=== PATIENT | female | born 1940 | race Caucasian/White ===

== ENCOUNTER 2018-06-20 13:43 | Inpatient (IN) | payer MEDICARE, OTHER ==
[~2018-06-20] VITALS: Ht 152.4 cm; Wt 53.7 kg
[~2018-06-20 13:43] MED LIST: ASCO10004 PO; CALCIUM/MAGNESIUM PO; CYAN500L2 PO; LEVO112T2 PO; LISI-167 PO; MINERALS PO; MULT-309 PO; NIAC500T85 PO; NIACIN PO; OXYC1TAB7 PO; PARO30TA3 PO; VITAMIN PO; [UNRECOGNIZED DRUG - OTHER] PO
[2018-06-20 14:20] LABS: BASOPHILS # (AUTO) 0.04 x10^3/uL (0-0.1); BASOPHILS % (AUTO) 1 % (0-1); EOSINOPHILS # (AUTO) 0.12 x10^3/uL (0-0.4); EOSINOPHILS % (AUTO) 2 % (1-7); LYMPHOCYTES # (AUTO) 2.22 x10^3/uL (1-3.4); LYMPHOCYTES % (AUTO) 29 % (22-44); MD NO; MEAN CORPUSCULAR HEMOGLOBIN 33.3 pg (27.0-34.8); MEAN CORPUSCULAR HGB CONC 34.1 g/dL (32.4-35.8); MEAN CORPUSCULAR VOLUME 97.6 fL (80-100); MONOCYTES # (AUTO) 0.49 x10^3/uL (0.2-0.8); MONOCYTES % (AUTO) 6 % (2-9); NEUTROPHILS # (AUTO) 4.91 x10^3/uL (1.8-6.8); NEUTROPHILS % (AUTO) 63 % (42-75); PLATELET COUNT 276 x10^3/uL (130-400); RED BLOOD COUNT 3.38 x10^6/uL (3.82-5.3); RED CELL DISTRIBUTION WIDTH 14.9 % (9.6-15.2)
[2018-06-20 14:32] LABS: INTERNATIONAL NORMALIZED RATIO 0.94 (0.93-1.1); PROTHROMBIN TIME 9.8 Seconds (9.6-11.5)
[2018-06-20] MEDS ORDERED: ASPIRIN 325 MG TABLET PO ONE (14:34)
[2018-06-20] MEDS ORDERED: ASPIRIN 325 MG TABLET ONE (14:51)
[2018-06-20] MEDS ORDERED: ONDANSETRON ODT 4 MG PO PRN (16:00)
[2018-06-20 16:02] LABS: FREE T4 (FREE THYROXINE) 1.28 ng/dL (0.76-1.46); THYROID STIMULATING HORMONE 0.578 mIU/L (0.358-3.740)
[2018-06-20 16:18] VITALS: BP 184/89
[2018-06-20 16:19] VITALS: BP 191/77
[2018-06-20 16:20] VITALS: BP 168/82
[2018-06-20] MEDS ORDERED: DIPHENHYDRAMINE 50 MG CAPSULE PO ONE (16:30)
[2018-06-20] MEDS ORDERED: DIPHENHYDRAMINE 50 MG CAPSULE ONE (16:31)
[2018-06-20] MEDS: HEPARIN 5,000 UNITS/ML, 1ML SQ SCH (16:35)
[2018-06-20] MEDS ORDERED: GADOBUTROL 7.5 MMOL/7.5 ML PFS ONE (17:28)
[2018-06-20 18:26] VITALS: BP 158/70
[2018-06-20 19:47] VITALS: BP_SYST 158; BP_SYST 161; BP_DIAS 60; BP_DIAS 63
[2018-06-20] MEDS ORDERED: PAROXETINE 10 MG TABLET PO SCH (21:00)
[2018-06-20] MEDS ORDERED: LISINOPRIL 10 MG TABLET PO SCH (21:00)
[2018-06-20] MEDS: LISINOPRIL 20 MG TABLET PO SCH (21:26)
[2018-06-21] VITALS (8 sets, daily range): BP systolic 122–192; BP diastolic 64–80
[2018-06-21] MEDS: HEPARIN 5,000 UNITS/ML, 1ML SQ SCH ×3 (00:03→16:40)
[2018-06-21] MEDS: LEVOTHYROXINE 88 MCG TABLET PO SCH (05:48)
[2018-06-21] MEDS ORDERED: LEVOTHYROXINE 100 MCG TABLET PO SCH (06:00)
[2018-06-21] MEDS: MULTIVITAMINS/MINERALS TABLET PO SCH (08:25)
[2018-06-21] MEDS: CYANOCOBALAMIN 1,000 MCG TABLET PO SCH (08:25)
[2018-06-21] MEDS: ASCORBIC ACID 500 MG TABLET PO SCH (08:25)
[2018-06-21] MEDS: LISINOPRIL 20 MG TABLET PO SCH ×2 (08:26→20:00)
[2018-06-21] MEDS: ENALAPRILAT 1.25 MG/ML, 2ML IVPush PRN (09:27)
[2018-06-21] MEDS: AMLODIPINE 5 MG TABLET PO SCH (13:30)
[2018-06-21] MEDS: LABETALOL 5MG/ML, 20ML IVPush PRN (21:52)
[2018-06-22] VITALS (7 sets, daily range): BP systolic 159–178; BP diastolic 77–82
[2018-06-22] MEDS: HEPARIN 5,000 UNITS/ML, 1ML SQ SCH ×3 (00:15→16:55)
[2018-06-22] MEDS: ENALAPRILAT 1.25 MG/ML, 2ML IVPush PRN ×3 (00:15→09:20)
[2018-06-22] MEDS: LEVOTHYROXINE 88 MCG TABLET PO SCH (06:26)
[2018-06-22] MEDS: ASPIRIN 81 MG TABLET EC PO SCH (06:26)
[2018-06-22] MEDS: MULTIVITAMINS/MINERALS TABLET PO SCH (08:24)
[2018-06-22] MEDS: ASCORBIC ACID 500 MG TABLET PO SCH (08:24)
[2018-06-22] MEDS: CYANOCOBALAMIN 1,000 MCG TABLET PO SCH (08:24)
[2018-06-22] MEDS: CLOPIDOGREL 75 MG TABLET PO SCH (08:24)
[2018-06-22] MEDS: LISINOPRIL 20 MG TABLET PO SCH ×3 (08:25→20:59)
[2018-06-22] MEDS: AMLODIPINE 5 MG TABLET PO SCH (08:25)
[2018-06-22] MEDS: LABETALOL 5MG/ML, 20ML IVPush PRN (13:23)
[2018-06-23 02:24] VITALS: BP 158/73
[2018-06-23] MEDS: HEPARIN 5,000 UNITS/ML, 1ML SQ SCH ×2 (02:28→09:42)
[2018-06-23] MEDS: LEVOTHYROXINE 88 MCG TABLET PO SCH (06:14)
[2018-06-23] MEDS: ASPIRIN 81 MG TABLET EC PO SCH (06:14)
[2018-06-23 08:04] VITALS: BP 152/69
[2018-06-23] MEDS ORDERED: AMLODIPINE 5 MG TABLET PO SCH (09:00)
[2018-06-23 09:40] VITALS: BP 155/78
[2018-06-23] MEDS: MULTIVITAMINS/MINERALS TABLET PO SCH (09:42)
[2018-06-23] MEDS: CYANOCOBALAMIN 1,000 MCG TABLET PO SCH (09:43)
[2018-06-23] MEDS: CLOPIDOGREL 75 MG TABLET PO SCH (09:43)
[2018-06-23] MEDS: LISINOPRIL 20 MG TABLET PO SCH (09:43)
[2018-06-23] MEDS: ASCORBIC ACID 500 MG TABLET PO SCH (09:52)
[2018-06-23 10:50] VITALS: BP 148/76
[2018-06-23 13:31] VITALS: BP 145/73
[2018-06-23] MEDS ORDERED: ASPI-621 PO (15:25)
[2018-06-23] MEDS ORDERED: LISI-170 PO (15:25)
[2018-06-23] MEDS ORDERED: AMLO5TAB2 PO (15:25)
[2018-06-23] MEDS ORDERED: CLOP75TA PO (15:25)
[2018-06-23] MEDS ORDERED: ONDA4TAB13 PO (15:25)
[2018-06-23] MEDS ORDERED: LEVO88TA2 PO (15:25)
== END 2018-06-23 17:38 | DRG 305 ==
LOC: EDBD → MERGE 13:43 → ED 14:39 → EDIP 14:40 → ED 15:25 → 4EST 15:58
PROVIDERS: ADMIT Internal Medicine; ATTEND Internal Medicine
DX: I16.0 Hypertensive urgency (principal); I67.82 Cerebral ischemia; D63.8 Anemia in other chronic diseases classified elsewhere; E03.9 Hypothyroidism, unspecified; I10 Essential (primary) hypertension; R26.89 Other abnormalities of gait and mobility; F01.50 Vascular dementia, unspecified severity, without behavioral disturbance, psychotic disturbance, mood disturbance, and anxiety; Z79.899 Other long term (current) drug therapy; Z83.3 Family history of diabetes mellitus; Z85.828 Personal history of other malignant neoplasm of skin; Z91.14 Patient's other noncompliance with medication regimen; Z86.73 Personal history of transient ischemic attack (TIA), and cerebral infarction without residual deficits
CPT/HCPCS: 36415; 70450; 70553; 80047; 84439; 84443; 85025; 85610; 85730; 93005; 93306; 93880; 99285; A9585; J1644

== ENCOUNTER 2018-08-25 12:53 | Inpatient (IN) | payer OTHER ==
[~2018-08-25] VITALS: Ht 149.9 cm; Wt 56.7 kg
[~2018-08-25 12:53] MED LIST changes: +AMLO5TAB7 PO; +ASPI-621 PO; +CLOP75TA PO; +LEVO88TA2 PO; +LISI-170 PO; +ONDA4TAB13 PO
[2018-08-25 14:26] LABS: MICROSCOPIC INDICATED
[2018-08-25 14:30] LABS: BASOPHILS # (AUTO) 0.02 x10^3/uL (0-0.1); BASOPHILS % (AUTO) 0 % (0-1); EOSINOPHILS # (AUTO) 0.03 x10^3/uL (0-0.4); EOSINOPHILS % (AUTO) 0 % (1-7); LYMPHOCYTES # (AUTO) 1.82 x10^3/uL (1-3.4); LYMPHOCYTES % (AUTO) 20 % (22-44); MD NO; MEAN CORPUSCULAR HGB CONC 33.1 g/dL (32.4-35.8); MEAN CORPUSCULAR VOLUME 96.4 fL (80-100); MEAN PLATELET VOLUME 8.8 fL (7.4-10.4); MONOCYTES # (AUTO) 0.54 x10^3/uL (0.2-0.8); MONOCYTES % (AUTO) 6 % (2-9); NEUTROPHILS # (AUTO) 6.95 x10^3/uL (1.8-6.8); NEUTROPHILS % (AUTO) 74 % (42-75); PLATELET COUNT 307 x10^3/uL (130-400); RED BLOOD COUNT 3.47 x10^6/uL (3.82-5.3); RED CELL DISTRIBUTION WIDTH 14.6 % (9.6-15.2)
[2018-08-25 14:35] LABS: INTERNATIONAL NORMALIZED RATIO 0.95 (0.93-1.1); PROTHROMBIN TIME 9.8 Seconds (9.6-11.5)
[2018-08-25 14:37] LABS: ANION GAP 11 mmol/L (5-15); CALCIUM 9.1 mg/dL (8.5-10.1); CHLORIDE 110 mmol/L (98-107); CREATININE 2.33 mg/dL (0.55-1.02)
[2018-08-25 14:38] LABS: ALANINE AMINOTRANSFERASE 40 U/L (12-78); ALBUMIN 3.5 g/dL (3.4-5.0)
[2018-08-25 14:41] LABS: ALKALINE PHOSPHATASE 82 U/L (45-117); BILIRUBIN,TOTAL 0.4 mg/dL (0.2-1.0); TOTAL PROTEIN 7.1 g/dL (6.4-8.2)
[2018-08-25 14:44] LABS: TROPONIN I 0.139 ng/mL (0.000-0.045)
[2018-08-25 14:55] LABS: CULTURE INDICATED? YES
[2018-08-25] MEDS ORDERED: SODIUM CHLORIDE 0.9% 1,000ML IVBOLUS ONE (15:30)
[2018-08-25] MEDS ORDERED: POTASSIUM CHLORIDE 20 MEQ in SODIUM CHLORIDE 0.9% 1,000 ML IV ONE (16:24)
[2018-08-25] MEDS ORDERED: SODIUM CHLORIDE FLUSH 10ML SYR IVF PRN (16:30)
[2018-08-25] MEDS: SODIUM CHLORIDE 0.9% 1,000 ML IV SCH (16:47)
[2018-08-25] MEDS ORDERED: hydrALAzine 20 MG/ML, 1ML IVPush PRN (17:00)
[2018-08-25] MEDS ORDERED: PHARMACY MAY ADJ FOR RENAL FX MC PRN (17:00)
[2018-08-25] MEDS: HEPARIN 5,000 UNITS/ML, 1ML SQ SCH (17:00)
[2018-08-25] MEDS ORDERED: BISACODYL 10 MG SUPP PR PRN (17:00)
[2018-08-25] MEDS ORDERED: DOCUSATE 100 MG CAPSULE PO PRN (17:00)
[2018-08-25] MEDS ORDERED: LABETALOL 5MG/ML, 20ML IVPush PRN (17:00)
[2018-08-25] MEDS ORDERED: ACETAMINOPHEN 325 MG TABLET PO PRN (17:00)
[2018-08-25] MEDS ORDERED: POLYETHYLENE GLYCOL 17 GM PACKET PO PRN (17:00)
[2018-08-25 17:30] LABS: BASOPHILS # (AUTO) 0.03 x10^3/uL (0-0.1); BASOPHILS % (AUTO) 0 % (0-1); EOSINOPHILS # (AUTO) 0.09 x10^3/uL (0-0.4); EOSINOPHILS % (AUTO) 1 % (1-7); LYMPHOCYTES # (AUTO) 2.34 x10^3/uL (1-3.4); LYMPHOCYTES % (AUTO) 25 % (22-44); MD NO; MEAN CORPUSCULAR HGB CONC 33.7 g/dL (32.4-35.8); MEAN CORPUSCULAR VOLUME 97.8 fL (80-100); MEAN PLATELET VOLUME 9.1 fL (7.4-10.4); MONOCYTES # (AUTO) 0.63 x10^3/uL (0.2-0.8); MONOCYTES % (AUTO) 7 % (2-9); NEUTROPHILS # (AUTO) 6.23 x10^3/uL (1.8-6.8); NEUTROPHILS % (AUTO) 67 % (42-75); PLATELET COUNT 291 x10^3/uL (130-400); RED BLOOD COUNT 3.33 x10^6/uL (3.82-5.3); RED CELL DISTRIBUTION WIDTH 14.2 % (9.6-15.2)
[2018-08-25 17:39] VITALS: BP 173/82
[2018-08-25 17:42] LABS: TROPONIN I 0.117 ng/mL (0.000-0.045)
[2018-08-25 17:45] LABS: HEMOGLOBIN A1C 5.6 % (4.2-6.3)
[2018-08-25] MEDS: CEFTRIAXONE PMX 1GM/50ML 50 ML IV SCH (18:42)
[2018-08-25 19:36] VITALS: BP_SYST 159; BP_SYST 162; BP_SYST 178; BP_DIAS 66; BP_DIAS 80; BP_DIAS 83
[2018-08-25 22:59] LABS: TROPONIN I 0.101 ng/mL (0.000-0.045)
[2018-08-26 00:49] VITALS: BP 155/80
[2018-08-26] MEDS: SODIUM CHLORIDE 0.9% 1,000 ML IV SCH ×3 (02:47→19:26)
[2018-08-26 03:02] LABS: AMPHETAMINE SCREEN, URINE Negative (Negative); BARBITURATE SCREEN, URINE Negative (Negative); BENZODIAZEPINE SCREEN, URINE Negative (Negative); CANNABINOID SCREEN, URINE Negative (Negative); COCAINE SCREEN, URINE Negative (Negative); METHADONE SCREEN, URINE Negative (Negative); OPIATE SCREEN, URINE Negative (Negative)
[2018-08-26] MEDS: HEPARIN 5,000 UNITS/ML, 1ML SQ SCH ×3 (03:42→19:41)
[2018-08-26] MEDS: ASPIRIN 81 MG TABLET EC PO SCH ×2 (05:08→05:14)
[2018-08-26] MEDS: LEVOTHYROXINE 88 MCG TABLET PO SCH (05:08)
[2018-08-26 05:26] LABS: ANION GAP 11 mmol/L (5-15); CALCIUM 8.1 mg/dL (8.5-10.1); CHLORIDE 115 mmol/L (98-107)
[2018-08-26 05:30] LABS: CHOL/HDL RATIO 3.5; CHOLESTEROL, TOTAL 207 mg/dL (140-239); CREATININE 1.61 mg/dL (0.55-1.02); HDL CHOL % 29 % (28-40); HDL CHOLESTEROL (DIRECT) 59 mg/dL (40-60); LDL CHOLESTEROL,CALCULATED 128 mg/dL (54-169); LDL/HDL RATIO 2.2 (0.5-3.0); TRIGLYCERIDES 98 mg/dL (50-200); VLDL CHOLESTEROL 20 mg/dL (0-25)
[2018-08-26 07:24] LABS: BASOPHILS # (AUTO) 0.03 x10^3/uL (0-0.1); BASOPHILS % (AUTO) 0 % (0-1); EOSINOPHILS # (AUTO) 0.19 x10^3/uL (0-0.4); EOSINOPHILS % (AUTO) 3 % (1-7); LYMPHOCYTES % (AUTO) 29 % (22-44); MD NO; MEAN CORPUSCULAR HEMOGLOBIN 32.2 pg (27.0-34.8); MEAN CORPUSCULAR HGB CONC 33.2 g/dL (32.4-35.8); MEAN CORPUSCULAR VOLUME 96.9 fL (80-100); MEAN PLATELET VOLUME 10.2 fL (7.4-10.4); MONOCYTES # (AUTO) 0.45 x10^3/uL (0.2-0.8); MONOCYTES % (AUTO) 6 % (2-9); NEUTROPHILS # (AUTO) 4.62 x10^3/uL (1.8-6.8); NEUTROPHILS % (AUTO) 62 % (42-75); PLATELET COUNT 236 x10^3/uL (130-400); RED BLOOD COUNT 2.99 x10^6/uL (3.82-5.3); RED CELL DISTRIBUTION WIDTH 14.3 % (9.6-15.2)
[2018-08-26 07:30] VITALS: BP_SYST 156; BP_SYST 165; BP_SYST 174; BP_DIAS 67; BP_DIAS 77; BP_DIAS 79
[2018-08-26] MEDS: AMLODIPINE 10 MG TAB PO SCH (08:52)
[2018-08-26] MEDS: MULTIVITAMINS/MINERALS TABLET PO SCH (08:53)
[2018-08-26] MEDS: ASCORBIC ACID 500 MG TABLET PO SCH (08:53)
[2018-08-26] MEDS: CLOPIDOGREL 75 MG TABLET PO SCH (08:53)
[2018-08-26] MEDS: CYANOCOBALAMIN 1,000 MCG TABLET PO SCH (09:00)
[2018-08-26] MEDS ORDERED: REGADENOSON 0.4 MG/5 ML SYRINGE ONE (09:16)
[2018-08-26 13:40] VITALS: BP 137/75
[2018-08-26] MEDS: CEFTRIAXONE PMX 1GM/50ML 50 ML IV SCH (17:34)
[2018-08-26] MEDS ORDERED: ASPIRIN 81 MG TABLET EC PO ONE (18:00)
[2018-08-26 19:01] VITALS: BP 138/68
[2018-08-26 19:50] VITALS: BP 160/80
[2018-08-27] VITALS (7 sets, daily range): BP systolic 154–202; BP diastolic 79–92
[2018-08-27] MEDS: HEPARIN 5,000 UNITS/ML, 1ML SQ SCH ×2 (02:41→11:36)
[2018-08-27] MEDS: LEVOTHYROXINE 88 MCG TABLET PO SCH (05:10)
[2018-08-27] MEDS: ASPIRIN 81 MG TABLET EC PO SCH (05:10)
[2018-08-27 05:39] LABS: BASOPHILS # (AUTO) 0.18 x10^3/uL (0-0.1); BASOPHILS % (AUTO) 2 % (0-1); EOSINOPHILS # (AUTO) 0.42 x10^3/uL (0-0.4); EOSINOPHILS % (AUTO) 5 % (1-7); LYMPHOCYTES # (AUTO) 2.64 x10^3/uL (1-3.4); LYMPHOCYTES % (AUTO) 32 % (22-44); MD NO; MEAN CORPUSCULAR HGB CONC 33.6 g/dL (32.4-35.8); MEAN PLATELET VOLUME 9.6 fL (7.4-10.4); MONOCYTES # (AUTO) 0.61 x10^3/uL (0.2-0.8); MONOCYTES % (AUTO) 7 % (2-9); NEUTROPHILS # (AUTO) 4.52 x10^3/uL (1.8-6.8); NEUTROPHILS % (AUTO) 54 % (42-75); PLATELET COUNT 238 x10^3/uL (130-400); RED BLOOD COUNT 3.07 x10^6/uL (3.82-5.3); RED CELL DISTRIBUTION WIDTH 14.2 % (9.6-15.2)
[2018-08-27 05:45] LABS: CHLORIDE 116 mmol/L (98-107)
[2018-08-27 05:52] LABS: ALANINE AMINOTRANSFERASE 34 U/L (12-78); ALBUMIN 2.7 g/dL (3.4-5.0); ALKALINE PHOSPHATASE 65 U/L (45-117); ANION GAP 10 mmol/L (5-15); BILIRUBIN,TOTAL 0.2 mg/dL (0.2-1.0); CREATININE 1.32 mg/dL (0.55-1.02); TOTAL PROTEIN 5.8 g/dL (6.4-8.2)
[2018-08-27] MEDS: AMLODIPINE 10 MG TAB PO SCH (08:26)
[2018-08-27] MEDS: CLOPIDOGREL 75 MG TABLET PO SCH (08:26)
[2018-08-27] MEDS: MULTIVITAMINS/MINERALS TABLET PO SCH (08:26)
[2018-08-27] MEDS: CYANOCOBALAMIN 1,000 MCG TABLET PO SCH (08:26)
[2018-08-27] MEDS: ASCORBIC ACID 500 MG TABLET PO SCH (08:26)
[2018-08-27] MEDS ORDERED: POLYETHYLENE GLYCOL 17 GM PACKET NG SCH (09:00)
[2018-08-27] MEDS ORDERED: LACTULOSE 20 GM/30 ML UDC ONE (13:21)
[2018-08-27] MEDS ORDERED: LACTULOSE 20 GM/30 ML UDC PO PRN (13:30)
[2018-08-27 15:52] LABS: OCCULT BLOOD NEGATIVE (NEGATIVE)
[2018-08-27] MEDS ORDERED: POLY17PO5 PO (16:58)
== END 2018-08-27 19:30 | disposition home or self-care (01) | DRG 304 ==
LOC: ED 14:49 → EDIP 16:24 → 5SO 17:41 → 4EST 08-26 11:20 → 5SO 08-26 12:04
PROVIDERS: ADMIT Hospitalist; ATTEND Hospitalist
PROC: 0T9B70Z Drainage of Bladder with Drainage Device, Via Natural or Artificial Opening (ICD-10-PCS; principal; 2018-08-25)
DX: I16.0 Hypertensive urgency (principal); N17.0 Acute kidney failure with tubular necrosis; I12.9 Hypertensive chronic kidney disease with stage 1 through stage 4 chronic kidney disease, or unspecified chronic kidney disease; D64.9 Anemia, unspecified; E03.9 Hypothyroidism, unspecified; E78.5 Hyperlipidemia, unspecified; E86.0 Dehydration; H40.9 Unspecified glaucoma; W18.39XA Other fall on same level, initial encounter; Y93.89 Activity, other specified; Z88.8 Allergy status to other drugs, medicaments and biological substances; Y92.89 Other specified places as the place of occurrence of the external cause; Y99.8 Other external cause status; Z88.6 Allergy status to analgesic agent; I25.2 Old myocardial infarction; I95.1 Orthostatic hypotension; K59.00 Constipation, unspecified; N18.9 Chronic kidney disease, unspecified; Z79.02 Long term (current) use of antithrombotics/antiplatelets; Z79.82 Long term (current) use of aspirin; Z83.3 Family history of diabetes mellitus; Z82.49 Family history of ischemic heart disease and other diseases of the circulatory system; Z86.73 Personal history of transient ischemic attack (TIA), and cerebral infarction without residual deficits; Z87.891 Personal history of nicotine dependence; I65.23 Occlusion and stenosis of bilateral carotid arteries; S09.90XA Unspecified injury of head, initial encounter; Z53.20 Procedure and treatment not carried out because of patient's decision for unspecified reasons
CPT/HCPCS: 36415; 70450; 70486; 70551; 71045; 72125; 74018; 76770; 78452; 80048; 80053; 80061; 80307; 81001; 82272; 83036; 83735; 84100; 84443; 84484; 85025; 85610; 85730; 87040; 87086; 93005; 93017; 96372; 99285; G0378; J0696; J1644; J2785; A9502; C9898; J7030